=== PATIENT | female | born 1985 | race Caucasian/White ===

== ENCOUNTER 2016-11-06 02:08 | Emergency (ER) | payer BC ==
[2016-11-06 02:22] VITALS: BP 102/75
--- NOTE | 2016-11-06 02:45 | EDM.PDOC ---
ED HPI GENERAL MEDICAL PROBLEM - General Chief Complaint: Respiratory Problem Stated Complaint: RESP PROBLEMS Time Seen by Provider: 11/06/16 02:34 Source of Information: Reports: Patient History Limitations: Reports: No Limitations - History of Present Illness INITIAL COMMENTS - FREE TEXT/NARRATIVE: The patient presents with a cough for the past 3 weeks. It has gotten progressively worse. She has shortness of breath at times and she thinks she may be wheezing at times. She has a history of asthma as a child. She has chills but no documented fever. She has tightness in her chest. Onset: Gradual Duration: Week(s): (3) Location: Reports: Chest Quality: Reports: Other (Tightness) Severity: Moderate Improves with: Reports: None Worsens with: Reports: None Associated Symptoms: Reports: Chest Pain, Cough, Fever/Chills, Shortness of Breath. Denies: Nausea/Vomiting - Related Data Allergies Allergy/AdvReac Type Severity Reaction Status Date / Time acetaminophen [From NyQuil] Allergy Hives Verified 11/06/16 02:22 dextromethorphan Allergy Hives Verified 11/06/16 02:22 [From NyQuil] doxylamine [From NyQuil] Allergy Hives Verified 11/06/16 02:22 pseudoephedrine [From NyQuil] Allergy Hives Verified 11/06/16 02:22 Home Meds: Home Meds Albuterol [IJD: Albuterol HFA] 2 puff .XX Q6HR PRN #8 gm 11/06/16 [Rx] Azithromycin [IJD: Azithromycin] 250 mg PO DAILY #6 tab 11/06/16 [Rx] Codeine/Promethazine [Phenergan with Codeine] 5 - 10 ml PO Q6HR PRN #300 ml [Rx] Past Medical History Gastrointestinal History: Reports: Other (See Below) Other Gastrointestinal History: stomach ulcers Neurological History: Reports: Migraines Social & Family History - Tobacco Use Smoking Status *Q: Never Smoker - Caffeine Use Caffeine Use: Reports: None - Recreational Drug Use Recreational Drug Use: No ED ROS GENERAL - Review of Systems Review Of Systems: See Below Constitutional: Reports: Chills. Denies: Fever HEENT: Reports: No Symptoms Respiratory: Reports: Shortness of Breath, Wheezing, Cough Cardiovascular: Reports: No Symptoms Endocrine: Reports: No Symptoms GI/Abdominal: Reports: No Symptoms : Reports: No Symptoms Musculoskeletal: Reports: No Symptoms ED EXAM, GENERAL - Physical Exam Exam: See Below Exam Limited By: No Limitations General Appearance: Alert, No Apparent Distress Ears: Normal External Exam Nose: Normal Inspection Head: Atraumatic, Normocephalic Neck: Normal Inspection Respiratory/Chest: No Respiratory Distress, Wheezing (Mild) Cardiovascular: Regular Rate, Rhythm, No Edema, No Murmur GI/Abdominal: Soft, Non-Tender, No Organomegaly Course - Vital Signs Last Recorded V/S: Last Vital Signs Temp 98 F 11/06/16 02:19 Pulse 121 H 11/06/16 02:19 Resp 16 11/06/16 02:19 BP 102/75 11/06/16 02:19 Pulse Ox 95 11/06/16 02:19 - Re-Assessments/Exams Free Text/Narrative Re-Assessment/Exam: 11/06/16 02:42 She has bronchitis. I will put her on zithromax, albuterol, and phenergan with codeine. Departure - Departure Time of Disposition: 02:45 Disposition: Home, Self-Care 01 Condition: Good Clinical Impression: Bronchitis - Discharge Information Prescriptions: Albuterol [IJD: Albuterol HFA] 2 puff .XX Q6HR PRN #8 gm PRN Reason: Shortness Of Breath Codeine/Promethazine [Phenergan with Codeine] 5 - 10 ml PO Q6HR PRN #300 ml PRN Reason: Cough Azithromycin [IJD: Azithromycin] 250 mg PO DAILY #6 tab Referrals: Olayinka,LUCIE Shell [Phys[employer]] - 1 Week Additional Instructions: Take zithromax 2 pills on day 1 and 1 pill on day 2 through 4. Take 2 puffs of the albuterol inhaler every 6 hours as needed for shortness of breath. Take the phenergan with codeine cough medicine every 6 hours as needed for a cough. Follow up with Kiera Moore at our clinic if you are not better in a few days. Please return if you are worse.
== END 2016-11-06 02:55 | disposition home or self-care (01) ==
LOC: JD.ED 02:08
DX: J40 Bronchitis, not specified as acute or chronic (principal); Z88.6 Allergy status to analgesic agent; Z88.8 Allergy status to other drugs, medicaments and biological substances
CPT/HCPCS: 99283; 99284